=== PATIENT | male | born 1990 | race Caucasian/White ===

== ENCOUNTER 2017-06-08 13:35 | Emergency (ER) | payer MEDICAID ==
[~2017-06-08] VITALS: Ht 185.4 cm; Wt 108.5 kg
[2017-06-08 13:42] VITALS: BP 132/94
[2017-06-08] MEDS ORDERED: IBUPROFEN 200 MG TABLET PO ONE (14:30)
[2017-06-08] MEDS ORDERED: IBUPROFEN 200 MG TABLET ONE (14:32)
[2017-06-08 14:54] LABS: RAPID INFLUENZA A Negative (Negative); RAPID INFLUENZA B Negative (Negative)
== END 2017-06-08 15:21 | disposition home or self-care (01) ==
LOC: ED 15:05
DX: J11.1 Influenza due to unidentified influenza virus with other respiratory manifestations (principal)
CPT/HCPCS: 87400; 99284